=== PATIENT | female | born 1950 | race African-American/Black ===

== ENCOUNTER → 2021-04-04 | Outpatient (CLI) | payer OTHER, MEDICARE ==
--- NOTE | 2021-04-04 16:56 | CARD ---
MR#: [id number] Date of Study: 04/04/2021 Ordering Physician: LUCY HUGHES, Referring Physician: LUCY HUGHES, Tech: Eugenia Madera, [facility] APPROVED REPORT EXAM: Two-dimensional and M-mode echocardiogram with Doppler and color Doppler. Other Information Quality : AverageHR: 58bpm INDICATION Cardiomyopathy RISK FACTORS Hypertension 2D DIMENSIONS RVDd3.1 (2.9-3.5cm)Left Atrium(2D)4.1 (1.6-4.0cm) IVSd1.2 (0.7-1.1cm)Aortic Root(2D)2.8 (2.0-3.7cm) LVDd5.2 (3.9-5.9cm)LVOT Diameter2.0 (1.8-2.4cm) PWd1.3 (0.7-1.1cm)LVDs1.8 (2.5-4.0cm) FS (%) 64.3 %SV117.4 ml LVEF(%)81.9 (>50%) Aortic Valve AoV Peak Donnie.217.8cm/sAoV VTI61.1cm AO Peak GR.19.0mmHgLVOT Peak Donnie.195.7cm/s LVOT VTI 58.56cmAO Mean GR.10mmHg BLAIR (VMAX)2.17ek3MFG (VTI)3.08cm2 Mitral Valve MV E Hdphsdmh688.5cm/sMV DECEL AZQE092ql MV A Gbvvghtw632.7cm/sMV ONU755um E/A Ratio0.8MVA (PHT)1.86cm2 TDI E/Lateral E'30.1E/Medial E'28.3 Pulmonary Valve PV Peak Jbagazwd414.7cm/sPV Peak Grad.4mmHg Tricuspid Valve TR P. Justqycs192cc/sRAP NLQALZHC0fwBa TR Peak Gr.33hzWqCUYU47upAc Pulmonary Vein S1 Fsioaanr94.0cm/sD2 Lgxobrse43.5cm/s PVa vnrasnas083gopk LEFT VENTRICLE The left ventricle is normal size. There is mild to moderate concentric left ventricular hypertrophy. The left ventricular systolic function is normal and the ejection fraction is within normal range. T he Ejection Fraction is 60-65%. There is normal LV segmental wall motion. Transmitral Doppler flow pa ttern is Grade I-abnormal relaxation pattern. RIGHT VENTRICLE The right ventricle is normal size. There is normal right ventricular wall thickness. The right ventr icular systolic function is normal. ATRIA The left atrium is mildly dilated. The right atrium size is normal. The interatrial septum is intact with no evidence for an atrial septal defect or patent foramen ovale as noted on 2-D or Doppler imagi ng. AORTIC VALVE The aortic valve is thickened but opens well. Doppler and Color Flow revealed trace aortic regurgitat ion. There is no significant aortic valvular stenosis. Calculated aortic valve area is 2.45 cm2 with maximum pressure gradient of 26 mmHg and mean pressure gradient of 13 mmHg. MITRAL VALVE The mitral valve is thickened but opens well. Mitral annular calcification is mild. There is no evide nce of mitral valve prolapse. There is no mitral valve stenosis. Doppler and Color-flow revealed trac e to mild mitral regurgitation. TRICUSPID VALVE The tricuspid valve is normal in structure and function. Doppler and Color Flow revealed trace tricus pid regurgitation with an estimated PAP of 42 mmHg. There is no tricuspid valve stenosis. PULMONIC VALVE The pulmonic valve is not well visualized. Doppler and Color Flow revealed trace pulmonic valvular re gurgitation. There is no pulmonic valvular stenosis. GREAT VESSELS The aortic root is normal in size. The IVC is normal in size and collapses >50% with inspiration. PERICARDIAL EFFUSION There is no evidence of significant pericardial effusion. Critical Notification Critical Value: No <Conclusion> The left ventricular systolic function is normal and the ejection fraction is within normal range. Th e Ejection Fraction is 60-65%. There is normal LV segmental wall motion. There is mild to moderate concentric left ventricular hypertrophy. Signed by : Shad Beck, Electronically Approved : 04/04/2021 16:56:06
== END ==
LOC: ECHO 14:45
PROVIDERS: ATTEND Internal Medicine Cardiovascular Disease
DX: I34.0 Nonrheumatic mitral (valve) insufficiency (principal); I51.7 Cardiomegaly
CPT/HCPCS: 93306